=== PATIENT | female | born 1990 | race Caucasian/White ===

== ENCOUNTER 2016-10-29 12:42 | Emergency (ER) | payer OTHER ==
[2016-10-02 12:19] VITALS: BMI 21.6
--- NOTE | 2016-10-29 16:12 | ED PDOC ---
HPI: General Adult Time Seen by Provider: 10/29/16 15:48 Chief Complaint (Provider): abdominal pain History Per: Patient Additional Complaint(s): 26-year-old female with no medical history presents to emergency department with generalized abdominal pain that started 3 weeks ago. Patient has been vomiting intermittently and states that she feels constipated. Patient denies any dysuria, vaginal bleeding, vaginal discharge. No fever or chills. Patient's last menstrual period was 09/12/2016. She is not sure if she is currently because her cycle is irregular. Patient states last time she was her urine test was negative but blood test was positive for the . She rates current abd pain as 4/10. Patient denies any concern for STD's. Past Medical History Reviewed: Historical Data, Nursing Documentation, Vital Signs - Medical History PMH: Anxiety, Asthma, Depression - Surgical History Other surgeries: rhinoplasty - Family History Family History: States: No Known Family Hx - Living Arrangements Living Arrangements: With Family - Social History Current smoker - smoking cessation education provided: No Alcohol: None Drugs: Cannabis - Home Medications Home Medications: Ambulatory Orders Medication Instructions Recorded Nitrofurantoin Macrocrystals 100 mg PO BID #10 cap 11/06/15 [Macrobid] Naproxen [Naprosyn] 1 tab PO BID PRN #60 tab 02/20/16 Famotidine [Pepcid] 20 mg PO BID #14 tab 04/09/16 Naproxen [Naprosyn] 500 mg PO Q12 PRN #14 tablet 04/09/16 Ondansetron [Zofran] 4 mg PO Q8H PRN #10 tab 04/09/16 Nitrofurantoin Macrocrystals 100 mg PO BID #14 cap 10/29/16 [Macrobid] - Allergies Allergies/Adverse Reactions: Allergies Allergy/AdvReac Type Severity Reaction Status Date / Time seasonal Allergy ITCHING Uncoded 10/29/16 17:45 Review of Systems ROS Statement: Except As Marked, All Systems Reviewed And Found Negative Constitutional: Negative for: Fever, Chills Cardiovascular: Negative for: Chest Pain Respiratory: Negative for: Cough Gastrointestinal: Positive for: Nausea, Vomiting, Abdominal Pain, Constipation. Negative for: Diarrhea Genitourinary Female: Negative for: Dysuria, Frequency, Incontinence, Hematuria , Vaginal Discharge, Vaginal Bleeding Neurological: Negative for: Headache, Dizziness Physical Exam - Reviewed Nursing Documentation Reviewed: Yes Vital Signs Reviewed: Yes - Physical Exam Appears: Positive for: Well, Non-toxic, No Acute Distress Skin: Negative for: Rash Eye Exam: Positive for: Normal appearance, EOMI, PERRL Cardiovascular/Chest: Positive for: Regular Rate, Rhythm Respiratory: Positive for: Normal Breath Sounds Gastrointestinal/Abdominal: Positive for: Normal Exam, Soft. Negative for: Tenderness, Distended, Guarding, Rebound Back: Negative for: L CVA Tenderness, R CVA Tenderness Extremity: Positive for: Normal ROM Neurologic/Psych: Positive for: Alert, Oriented - Laboratory Results Result Diagrams: 10/29/16 15:16 10/29/16 15:16 Urine POC: Negative - ECG O2 Sat by Pulse Oximetry: 100 Pulse Ox Interpretation: Normal Medical Decision Making Medical Decision Makin26 year old female with abdominal pain Urine test is negative Plan: Serum beta CBC CMP UA and culture IVF UTI noted. Rx macrobid given. Advised NSAID's for pain and follow up with clinic in 2-3 days. Disposition - Clinical Impression Clinical Impression: UTI (urinary tract infection) - Patient ED Disposition Is Patient to be Admitted: No Counseled Patient/Family Regarding: Studies Performed, Diagnosis, Need For Followup, Rx Given - Disposition Referrals: [facility] [Outside] Disposition: Routine/Home Disposition Time: 17:54 Condition: STABLE Additional Instructions: Take rx meds as directed. [id number] Tylenol or Advil for pain. Follow up with clinic in 2-3 days. Prescriptions: Nitrofurantoin Macrocrystals [Macrobid] 100 mg PO BID #14 cap Instructions: Urinary Tract Infection in Women (ED)
[2016-10-29 16:13] LABS: BASO # 0.1 K/uL (0.0-0.2); BASO % 0.7 % (0.0-2.0); EOS # 0.1 K/uL (0.0-0.7); EOS % 0.8 % (0.0-4.0); HEMATOCRIT 40.4 % (34.0-47.0); LYMPH # 1.9 K/uL (1.0-4.3); LYMPH % 24.4 % (20.0-40.0); MEAN CORPUSCULAR HEMOGLOBIN 31.6 pg (27.0-31.0); MEAN CORPUSCULAR HGB CONC 33.6 g/dL (33.0-37.0); MEAN PLATELET VOLUME 8.8 fl (7.2-11.7); MONO # 0.5 K/uL (0.0-0.8); MONO % 6.6 % (0.0-10.0); NEUT # 5.4 K/uL (1.8-7.0); NEUT % 67.5 % (50.0-75.0); RED CELL DISTRIBUTION WIDTH 13.1 % (11.5-14.5)
[2016-10-29 16:29] LABS: RBC URINE 2 /hpf (0-3); URINE BACTERIA FEW (<OCC); URINE BILIRUBIN NEGATIVE (NEGATIVE); URINE BLOOD NEGATIVE (NEGATIVE); URINE COLOR YELLOW (YELLOW); URINE GLUCOSE (UA) NEG (Normal); URINE KETONE NEGATIVE (NEGATIVE); URINE LEUKOCYTE ESTERASE LARGE Leu/uL (Negative); URINE PROTEIN 30 mg/dL (NEGATIVE); URINE UROBILINOGEN 0.2-1.0 mg/dL (0.2-1.0); WBC URINE 10 /hpf (0-5)
[2016-10-29 16:38] LABS: ALB/GLOB RATIO 1.8 (1.0-2.1); ALKALINE PHOSPHATASE 75 U/L (38-126); ALT/SGPT 28 U/L (9-52); AST/SGOT 25 U/L (14-36); BILIRUBIN,TOTAL 0.6 mg/dl (0.2-1.3); BLOOD UREA NITROGEN 8 mg/dl (7-17); CALCIUM 9.5 mg/dL (8.4-10.2); CARBON DIOXIDE 28 mmol/L (22-30); CHLORIDE 103 mmol/L (98-107); GFR AFRICAN-AMERICAN > 60; GLUCOSE,RANDOM 88 mg/dL (65-105); POTASSIUM 3.9 MMOL/L (3.6-5.0); SODIUM 141 mmol/l (132-148); TOTAL PROTEIN 7.7 G/DL (6.3-8.2)
[2016-10-29 18:41] VITALS: O2SAT 100
== END 2016-10-29 18:45 | disposition home or self-care (01) ==
LOC: H.ER 12:42
DX: N39.0 Urinary tract infection, site not specified (principal)

== ENCOUNTER 2017-09-03 23:03 | Emergency (ER) | payer MEDICAID, OTHER ==
[2017-09-03 23:04] VITALS: BMI 21.6
[2017-09-03 23:46] VITALS: BP 112/73; PULSE 88; RESP 18; TEMP 98.7; O2SAT 99
[2017-09-04] MEDS ORDERED: Amoxicillin-Clav 875-125 mg Tab PO STA (00:22)
[2017-09-04] MEDS ORDERED: Amoxicillin-Clav 875-125 mg Tab PO ONE (00:37)
[2017-09-04 01:11] LABS: BASO # 0.1 K/uL (0.0-0.2); BASO % 0.8 % (0.0-2.0); EOS # 0.1 K/uL (0.0-0.7); EOS % 1.3 % (0.0-4.0); HEMOGLOBIN 12.3 g/dL (12.0-16.0); LYMPH # 1.9 K/uL (1.0-4.3); LYMPH % 25.5 % (20.0-40.0); MEAN CELL VOLUME 94.2 fl (81.0-99.0); MEAN CORPUSCULAR HEMOGLOBIN 32.9 pg (27.0-31.0); MEAN CORPUSCULAR HGB CONC 34.9 g/dL (33.0-37.0); MEAN PLATELET VOLUME 8.2 fl (7.2-11.7); MONO # 0.9 K/uL (0.0-0.8); MONO % 11.8 % (0.0-10.0); NEUT # 4.5 K/uL (1.8-7.0); NEUT % 60.6 % (50.0-75.0); RBC 3.75 Mil/uL (3.80-5.20); RED CELL DISTRIBUTION WIDTH 13.2 % (11.5-14.5); WHITE BLOOD COUNT 7.4 K/uL (4.8-10.8)
[2017-09-04 01:20] LABS: ALB/GLOB RATIO 1.3 (1.0-2.1); ALBUMIN 4.3 g/dL (3.5-5.0); ALT/SGPT 33 U/L (9-52); AST/SGOT 18 U/L (14-36); BLOOD UREA NITROGEN 12 mg/dl (7-17); CALCIUM 9.1 mg/dL (8.4-10.2); GFR AFRICAN-AMERICAN > 60; GFR NON-AFRICAN AMERICAN > 60
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
== END 2017-09-04 01:25 | disposition left against medical advice (07) ==
LOC: H.ER 23:03
DX: S61.431A Puncture wound without foreign body of right hand, initial encounter (principal); M54.9 Dorsalgia, unspecified; Y04.0XXA Assault by unarmed brawl or fight, initial encounter; Y04.1XXA Assault by human bite, initial encounter; Y92.410 Unspecified street and highway as the place of occurrence of the external cause; O26.899 Other specified pregnancy related conditions, unspecified trimester; D64.9 Anemia, unspecified; F32.9 Major depressive disorder, single episode, unspecified; J45.909 Unspecified asthma, uncomplicated; M32.9 Systemic lupus erythematosus, unspecified

== ENCOUNTER 2017-09-08 13:23 | Emergency (ER) | payer OTHER ==
[2017-09-08 13:23] VITALS: BMI 21.6
[2017-09-08 13:34] VITALS: TEMP 98
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
[2017-09-08] MEDS ORDERED: Sodium Chloride 0.9% 1,000 ML IV STA (14:17)
[2017-09-08 14:57] LABS: BASO % 0.5 % (0.0-2.0); EOS % 0.7 % (0.0-4.0); HEMOGLOBIN 12.5 g/dL (12.0-16.0); LYMPH # 1.7 K/uL (1.0-4.3); LYMPH % 27.9 % (20.0-40.0); MEAN CELL VOLUME 95.4 fl (81.0-99.0); MEAN CORPUSCULAR HEMOGLOBIN 32.2 pg (27.0-31.0); MEAN CORPUSCULAR HGB CONC 33.8 g/dL (33.0-37.0); MEAN PLATELET VOLUME 8.2 fl (7.2-11.7); MONO # 0.6 K/uL (0.0-0.8); MONO % 9.3 % (0.0-10.0); NEUT # 3.7 K/uL (1.8-7.0); NEUT % 61.6 % (50.0-75.0); RBC 3.87 Mil/uL (3.80-5.20); RED CELL DISTRIBUTION WIDTH 13.5 % (11.5-14.5)
[2017-09-08 15:10] LABS: ALB/GLOB RATIO 1.3 (1.0-2.1); ALBUMIN 4.2 g/dL (3.5-5.0); ALT/SGPT 30 U/L (9-52); AST/SGOT 17 U/L (14-36); BLOOD UREA NITROGEN 8 mg/dl (7-17); CALCIUM 8.9 mg/dL (8.4-10.2); GFR AFRICAN-AMERICAN > 60; GFR NON-AFRICAN AMERICAN > 60
[2017-09-08 15:20] LABS: SQUAMOUS EPITHIAL 35 /hpf (0-5); URINE BACTERIA RARE (<OCC); URINE BILIRUBIN NEGATIVE (NEGATIVE); URINE BLOOD SMALL (NEGATIVE); URINE CLARITY CLOUDY (Clear); URINE COLOR YELLOW (YELLOW); URINE GLUCOSE (UA) NEG (Normal); URINE LEUKOCYTE ESTERASE TRACE Leu/uL (Negative); URINE PROTEIN NEGATIVE (NEGATIVE); URINE UROBILINOGEN 0.2-1.0 mg/dL (0.2-1.0)
--- NOTE | 2017-09-08 16:10 | US ---
PROCEDURE: OB Pelvic Ultrasound HISTORY: approx 4 weeks with pain and bleeding LMP: 07/27/2017 - estimated gestational age by LMP 6 weeks 1 day COMPARISON: None available. FINDINGS: UTERUS: Gestational sac: Single intrauterine gestation. 0.79 cm -out of range Yolk sac present 0.19 cm No pole identified Measures 9.7 x 6.2 x 5.2 cm. Anteverted. . No fibroid or other mass lesion seen. CERVIX: Measures 4.45 cm. Long and closed. No cervical abnormality seen. RIGHT OVARY: Measures 3.3 x 3.7 x 1.3 cm. No mass lesion. Normal flow. Normal follicles are noted LEFT OVARY: Measures 3.1 x 3.2 x 2.6 cm. No solid mass. Normal flow. Complex cyst measuring 2.0 x 1.9 x 2.1 cm FREE FLUID: Present OTHER FINDINGS: None. IMPRESSION: Intrauterine gestational sac with yolk sac. Dating out of range estimated less than 6 weeks. No pole identified. Viability uncertain. Follow-up with serial beta HCG levels and follow-up imaging recommended. Clinical estimated gestational age by LMP 6 weeks 1 day. Complex cyst left ovary possible corpus luteal. Free fluid in cul-de-sac.
[2017-09-08 16:33] VITALS: BP 121/71; PULSE 87; RESP 15
[2017-09-08 16:46] VITALS: O2SAT 100
== END 2017-09-08 16:54 | disposition home or self-care (01) ==
LOC: H.ER 13:23
DX: O20.0 Threatened abortion (principal); Z3A.01 Less than 8 weeks gestation of pregnancy; Z86.59 Personal history of other mental and behavioral disorders; J45.909 Unspecified asthma, uncomplicated; O99.511 Diseases of the respiratory system complicating pregnancy, first trimester; Z87.442 Personal history of urinary calculi
CPT/HCPCS: 76817; 80053; 81003; 81025; 84702; 85025; 86850; 86900; 87086; 99284; J7040

== ENCOUNTER 2017-09-20 06:40 | Emergency (ER) | payer OTHER ==
[2017-09-20 06:41] VITALS: BMI 21.6
[2017-09-20 06:55] VITALS: BP 111/64; PULSE 74; RESP 16; TEMP 98.3; O2SAT 99
[2017-09-20] MEDS ORDERED: Sodium Chloride 0.9% 1,000 ML IV STA (07:30)
--- NOTE | 2017-09-20 07:45 | ED PDOC ---
HPI: Abdomen Time Seen by Provider: 09/20/17 07:30 Chief Complaint (Nursing): GI Problem History Per: Patient History/Exam Limitations: no limitations Additional Complaint(s): 27-year-old female presents to ED for nausea and vomiting for past few days. Unable to tolerate PO. Denies abdominal pain, diarrhea, or vaginal bleeding. Patient is approximate 5 weeks . PMD: Dr. Arango Abnormal Vaginal Bleeding: No Past Medical History Reviewed: Historical Data, Nursing Documentation, Vital Signs Vital Signs: Last Vital Signs Temp 98.3 F 09/20/17 06:52 Pulse 74 09/20/17 06:52 Resp 16 09/20/17 06:52 BP 111/64 09/20/17 06:52 Pulse Ox 99 09/20/17 12:26 - Medical History PMH: Anemia, Anxiety, Asthma, Back Problems, Depression, Kidney Stones - Family History Family History: States: Unknown Family Hx - Immunization History Hx Tetanus Toxoid Vaccination: No Hx Influenza Vaccination: No Hx Pneumococcal Vaccination: No - Home Medications Home Medications: Ambulatory Orders Medication Instructions Recorded Famotidine [Pepcid] 20 mg PO BID #30 tab 06/08/17 Doxylamine/Pyridoxine HCl (B6) 2 tab PO ASDIR #60 tab 09/08/17 [Jitendra Iraheta 10-10 mg Tablet] Doxylamine/Pyridoxine HCl (B6) 1 each PO DAILY #20 tablet. 09/20/17 [Jitendra Iraheta 10-10 mg Tablet] - Allergies Allergies/Adverse Reactions: Allergies Allergy/AdvReac Type Severity Reaction Status Date / Time seasonal Allergy ITCHING Uncoded 09/08/17 13:31 Review of Systems ROS Statement: Except As Marked, All Systems Reviewed And Found Negative Gastrointestinal: Positive for: Nausea, Vomiting. Negative for: Abdominal Pain , Diarrhea Physical Exam - Reviewed Nursing Documentation Reviewed: Yes Vital Signs Reviewed: Yes - Physical Exam ENT: Positive for: Other (Mucous membrane tachy) Cardiovascular/Chest: Positive for: Regular Rate, Rhythm Respiratory: Positive for: Normal Breath Sounds. Negative for: Respiratory Distress Gastrointestinal/Abdominal: Positive for: Normal Exam, Soft. Negative for: Tenderness Extremity: Negative for: Tenderness, Swelling - Laboratory Results Result Diagrams: 09/20/17 07:30 09/20/17 07:30 - ECG O2 Sat by Pulse Oximetry: 99 (RA) Pulse Ox Interpretation: Normal - Progress Re-evaluation Time: 13:20 Condition: Improved (nO VOMITING TOLRATED po) Medical Decision Making Medical Decision Making: Time: 07:38 Plan: - Type and Screen - Beta-hCG, Quantitative - CMP - CBC - Sodium Chloride 0.9% 1,000 ml IV 200mls/hr - Reglan 10 mg IVP - Vitamin B6 - OB Trans vaginal (-) Antibody Screen Time: 09:29 OB Pelvic Ultrasound FINDINGS: UTERUS: A solitary pole is identified within the endometrial cavity as well as yolk sac with the attic membrane not clearly identified. The decidual reaction is remarkable for minimal lucency at the inferior margins potentially reflecting limited subchorionic hemorrhage of indeterminate age. cardiac activity recorded 154 beats per minute. Mean crown-rump length measurement is 1.02 cm corresponding to ultrasonic age of 7 weeks 1 day, which is concordant with menstrual dates of 7 weeks 4 days and represents normal interval growth compared to prior obstetric ultrasound dated 09/08/2017. Mean gestational sac measures 2.8 cm corresponds average ultrasonic age of 7 weeks 5 days. Estimated date of delivery 05/06/2018. The uterus measures 9.9 x 4.8 x 6.3 cm. No myometrial pathology grossly evident. CERVIX: Measures 5.0 cm. Long and closed. No cervical abnormality seen. RIGHT OVARY: Measures 2.5 x 1.5 x 2.9 cm. No mass lesion. Normal flow. LEFT OVARY: Measures 3.7 x 2.1 x 3.4 cm. No solid mass. Normal flow. A small probable corpus luteum cyst is identified measure 1.6 cm. FREE FLUID: None. OTHER FINDINGS: None. IMPRESSION: A single viable intrauterine gestation is identified with average ultrasonic age of 7 weeks 1 day representing normal growth compared to prior transvaginal obstetric ultrasound 09/08/2017, and good concordance with LMP derived dates as discussed above. Trace subchorionic hemorrhage is in question. Clinical correlation follow-up ultrasonography recommended. Potassium Level Reveals 3.4 MMOL/L [low] Beta hCG, Quantitative Reveals 572948.00 mIU/ML Time: 11:04 K-Dur 20 mEq ER Tab Time: 11:37 Benadryl 25 mg IVP STAT Scribe Attestation: Documented by Deandre Phillips, acting as a scribe for Ja Jean Baptiste MD Provider Scribe Attestation: All medical record entries made by the Scribe were at my direction and personally dictated by me. I have reviewed the chart and agree that the record accurately reflects my personal performance of the history, physical exam, medical decision making, and the department course for this patient. I have also personally directed, reviewed, and agree with the discharge instructions and disposition. Disposition - Clinical Impression Clinical Impression: Hyperemesis arising during - Patient ED Disposition Is Patient to be Admitted: No Counseled Patient/Family Regarding: Studies Performed, Diagnosis, Need For Followup, Rx Given - Disposition [facility]] Disposition: Routine/Home Disposition Time: 13:21 Condition: FAIR Prescriptions: Doxylamine/Pyridoxine HCl (B6) [Jitendra Iraheta 10-10 mg Tablet] 1 each PO DAILY # 20 tablet. Instructions: Hyperemesis Gravidarum Forms: [employer] (Swedish)
[2017-09-20 08:07] LABS: BASO # 0.1 K/uL (0.0-0.2); BASO % 0.6 % (0.0-2.0); EOS % 0.3 % (0.0-4.0); HEMOGLOBIN 13.7 g/dL (12.0-16.0); MEAN CELL VOLUME 94.2 fl (81.0-99.0); MEAN CORPUSCULAR HEMOGLOBIN 33.4 pg (27.0-31.0); MEAN CORPUSCULAR HGB CONC 35.5 g/dL (33.0-37.0); MONO # 0.7 K/uL (0.0-0.8); MONO % 7.4 % (0.0-10.0); NEUT # 7.1 K/uL (1.8-7.0); NEUT % 71.7 % (50.0-75.0); NRBC % 0.1 % (0.0-0.0); RBC 4.1 Mil/uL (3.80-5.20); RED CELL DISTRIBUTION WIDTH 13.6 % (11.5-14.5)
[2017-09-20 08:08] LABS: ALB/GLOB RATIO 1.3 (1.0-2.1); ALBUMIN 4.7 g/dL (3.5-5.0); ALT/SGPT 30 U/L (9-52); AST/SGOT 21 U/L (14-36); BLOOD UREA NITROGEN 8 mg/dl (7-17); CALCIUM 9.4 mg/dL (8.4-10.2); GFR AFRICAN-AMERICAN > 60; GFR NON-AFRICAN AMERICAN > 60
--- NOTE | 2017-09-20 09:30 | US ---
PROCEDURE: OB Pelvic Ultrasound HISTORY: r/o ectopic LMP: 07/29/2017 suggesting an estimated gestational age of 7 weeks 4 days. COMPARISON: Obstetric ultrasound 09/08/2017 TECHNIQUE: Transvaginal pelvic ultrasound was performed with longitudinal and transverse images submitted for interpretation. FINDINGS: UTERUS: A solitary pole is identified within the endometrial cavity as well as yolk sac with the attic membrane not clearly identified. The decidual reaction is remarkable for minimal lucency at the inferior margins potentially reflecting limited subchorionic hemorrhage of indeterminate age. cardiac activity recorded 154 beats per minute. Mean crown-rump length measurement is 1.02 cm corresponding to ultrasonic age of 7 weeks 1 day, which is concordant with menstrual dates of 7 weeks 4 days and represents normal interval growth compared to prior obstetric ultrasound dated 09/08/2017. Mean gestational sac measures 2.8 cm corresponds average ultrasonic age of 7 weeks 5 days. Estimated date of delivery 05/06/2018. The uterus measures 9.9 x 4.8 x 6.3 cm. No myometrial pathology grossly evident. CERVIX: Measures 5.0 cm. Long and closed. No cervical abnormality seen. RIGHT OVARY: Measures 2.5 x 1.5 x 2.9 cm. No mass lesion. Normal flow. LEFT OVARY: Measures 3.7 x 2.1 x 3.4 cm. No solid mass. Normal flow. A small probable corpus luteum cyst is identified measure 1.6 cm. FREE FLUID: None. OTHER FINDINGS: None. IMPRESSION: A single viable intrauterine gestation is identified with average ultrasonic age of 7 weeks 1 day representing normal growth compared to prior transvaginal obstetric ultrasound 09/08/2017, and good concordance with LMP derived dates as discussed above. Trace subchorionic hemorrhage is in question. Clinical correlation follow-up ultrasonography recommended.
[2017-09-20] MEDS ORDERED: Potassium Chloride 20 mEq ER Tab PO ONE ×2 (11:30→11:52)
[2017-09-20] MEDS ORDERED: DiphenhydrAMINE 50 mg/ml Inj IVP STA (11:37)
[2017-09-20] MEDS ORDERED: DiphenhydrAMINE 50 mg/ml Inj ONE (11:52)
== END 2017-09-20 14:35 | disposition home or self-care (01) ==
LOC: H.ER 06:40
DX: O21.0 Mild hyperemesis gravidarum (principal); O26.91 Pregnancy related conditions, unspecified, first trimester; Z86.59 Personal history of other mental and behavioral disorders; J45.909 Unspecified asthma, uncomplicated; Z87.442 Personal history of urinary calculi
CPT/HCPCS: 76817; 80053; 84702; 85025; 86850; 86900; 96374; 96375; 99283; J1200; J2765; J7040

== ENCOUNTER 2017-09-26 06:30 | Emergency (ER) | payer OTHER ==
[2017-09-26 06:31] VITALS: BMI 21.6
[2017-09-26 06:53] VITALS: BP 132/82; PULSE 81; RESP 18; TEMP 98.3; O2SAT 97
== END 2017-09-26 11:03 | disposition left against medical advice (07) ==
LOC: H.ER 06:30
DX: Z02.89 Encounter for other administrative examinations (principal)